=== PATIENT | female | born 1970 | race Two or more races ===

== ENCOUNTER 2021-12-22 14:08 | Emergency (ER) | payer OTHER ==
[~2021-12-22] VITALS: Ht 167.6 cm; Wt 68.0 kg
== END 2021-12-22 16:40 | disposition home or self-care (01) ==
LOC: ER 14:08
DX: S61.212A Laceration without foreign body of right middle finger without damage to nail, initial encounter (principal); W25.XXXA Contact with sharp glass, initial encounter; Y93.9 Activity, unspecified; Y92.89 Other specified places as the place of occurrence of the external cause

== ENCOUNTER 2022-03-29 15:01 | Outpatient (CLI) | payer OTHER | END 2022-03-29 15:07 | disposition home or self-care (01) | LOC: RAD 15:01 | PROVIDERS: ATTEND Specialist | DX: J45.998 Other asthma (principal) ==

== ENCOUNTER 2022-04-04 10:00 | Outpatient (CLI) | payer OTHER | END 2022-04-04 10:12 | disposition home or self-care (01) | LOC: MAMO-SONO 10:00 | PROVIDERS: ATTEND Specialist | DX: Z12.31 Encounter for screening mammogram for malignant neoplasm of breast (principal) ==

== ENCOUNTER 2022-05-04 10:14 | Outpatient (CLI) | payer OTHER | END 2022-05-04 10:35 | disposition home or self-care (01) | LOC: TOM 10:14 | PROVIDERS: ATTEND Specialist | DX: J47.9 Bronchiectasis, uncomplicated (principal) ==

== ENCOUNTER 2023-10-12 09:09 | Outpatient (CLI) | payer OTHER | END 2023-10-12 09:32 | disposition home or self-care (01) | LOC: MAMO-SONO 09:09 | PROVIDERS: ATTEND Student in an Organized Health Care Education/Training Program | DX: N60.11 Diffuse cystic mastopathy of right breast (principal); N60.12 Diffuse cystic mastopathy of left breast ==

== ENCOUNTER 2024-04-16 10:59 | Outpatient (CLI) | payer OTHER | END 2024-04-16 11:11 | disposition home or self-care (01) | LOC: RAD 10:59 | DX: M54.2 Cervicalgia (principal); M54.6 Pain in thoracic spine; M54.50 Low back pain, unspecified ==